=== PATIENT | male | born 1935 | race Caucasian/White ===

== ENCOUNTER 2017-04-16 18:12 | Emergency (ER) | payer MEDICARE ==
[2017-04-16 18:55] LABS: Bilirubin Negative (Negative); Blood, Urine Negative (Negative); Glucose, Urine (Dipstick) Negative (Negative); Ketone, Urine Negative (Negative); Nitrite Negative (Negative); Protein, Urine (Dipstick) Negative (Neg-Trace)
[2017-04-16 19:48] LABS: #Eosinphils 0.3 thou/uL (0.0-0.7); #Lymphocytes 1.6 thou/uL (1.20-3.40); #Monocytes 0.5 thou/uL (0.11-0.59); #Neutrophils 4.6 thou/uL (1.40-6.50); %Basophils 0.7 % (0.0-1.0); %Eosinophils 4.3 % (0.0-10.0); %Lymphocytes 22.3 % (21.0-51.0); %Monocytes 7.2 % (0.0-10.0); Hematocrit 43.9 % (42.0-52.0); Mean Platelet Volume 9.3 fL (7.4-10.4); Red Blood Cell (RBC) Count 4.29 mill/uL (4.70-6.10)
--- NOTE | 2017-04-16 20:01 | RAD ---
PA AND LATERAL OF THE CHEST 04/16/17 INDICATION: Cough and weakness. COMPARISON: None. FINDINGS: The lungs are clear. The cardiomediastinal silhouette is normal. No acute osseous abnormality is adalberto dent. IMPRESSION: No acute cardiopulmonary abnormality. POS: [facility]
[2017-04-16 20:11] LABS: ALT (SGPT) 38 U/L (8-55); AST (SGOT) 35 U/L (5-34); Alkaline Phosphatase 68 U/L (40-150); Anion Gap 11 mmol/L (10-20); BUN (Urea Nitrogen) 19 mg/dL (8.4-25.7); Bilirubin, Total 0.8 mg/dL (0.2-1.2); CK (CPK) 65 U/L (30-200); Calc. Creatinine Clearance 0 mL/min (70-130); Calcium 10.1 mg/dL (7.8-10.44); Carbon Dioxide 28 mmol/L (23-31); Chloride 101 mmol/L (98-107); Estimated GFR-MDRD 70; Globulin 3.4 g/dL (2.4-3.5); Protein, Total 7.1 g/dL (5.8-8.1)
[2017-04-16 20:14] LABS: Troponin I Less than 0.010 ng/mL (< 0.028)
[2017-04-16 21:46] LABS: PTT 29.5 SEC (22.9-36.1)
[2017-04-16] MEDS ORDERED: hydrOXYzine 25 MG TAB ONE (22:13)
== END 2017-04-16 22:16 | disposition home or self-care (01) ==
LOC: ERS 18:12
DX: J06.9 Acute upper respiratory infection, unspecified (principal); I25.89 Other forms of chronic ischemic heart disease; I10 Essential (primary) hypertension; E78.5 Hyperlipidemia, unspecified; Z79.899 Other long term (current) drug therapy
CPT/HCPCS: 36415; 71020; 80053; 81003; 82553; 84484; 85025; 85610; 85730; 93005

== ENCOUNTER 2017-08-05 12:40 | Observation (INO) | payer MEDICARE ==
[2017-08-05 13:51] LABS: #Eosinphils 0.1 thou/uL (0.0-0.7); #Lymphocytes 1.5 thou/uL (1.20-3.40); #Monocytes 0.4 thou/uL (0.11-0.59); #Neutrophils 4.2 thou/uL (1.40-6.50); %Basophils 0.1 % (0.0-1.0); %Eosinophils 1.1 % (0.0-10.0); %Lymphocytes 23.8 % (21.0-51.0); %Monocytes 7.1 % (0.0-10.0); Hemoglobin 15.3 g/dL (14.0-18.0); Mean Corpuscular HGB CONC 33.3 g/dL (32.0-36.0); Mean Platelet Volume 9.3 fL (7.4-10.4); Platelet Count 108 thou/uL (130-400); RBC Distribution Width 12.2 % (11.5-14.5); Red Blood Cell (RBC) Count 4.51 mill/uL (4.70-6.10); White Blood Cell (WBC) Count 6.2 thou/uL (4.8-10.8)
[2017-08-05 14:16] LABS: ALT (SGPT) 31 U/L (8-55); AST (SGOT) 31 U/L (5-34); Alkaline Phosphatase 80 U/L (40-150); Anion Gap 12 mmol/L (10-20); BUN (Urea Nitrogen) 38 mg/dL (8.4-25.7); Bilirubin, Total 1.1 mg/dL (0.2-1.2); Calc. Creatinine Clearance 0 mL/min (70-130); Calcium 9.8 mg/dL (7.8-10.44); Carbon Dioxide 26 mmol/L (23-31); Chloride 100 mmol/L (98-107); Estimated GFR-MDRD 60; Globulin 3.6 g/dL (2.4-3.5); Glucose 90 mg/dL (83-110); Potassium 4.3 mmol/L (3.5-5.1); Protein, Total 7.6 g/dL (5.8-8.1); Sodium 134 mmol/L (136-145)
[2017-08-05 14:21] LABS: CKMB 4.5 ng/mL (0-6.6); Troponin I Less than 0.010 ng/mL (< 0.028)
--- NOTE | 2017-08-05 14:26 | RAD ---
PORTABLE CHEST 1 VIEW: DATE: 08/05/17. TIME: 1:52 p.m. HISTORY: Bradycardia 2nd degree heart block. FINDINGS: The heart size is borderline. The lungs are expanded without focal areas of consolidation, pneumotho rax, rodrigue pulmonary edema, or pleural effusions. IMPRESSION: No radiographic evidence of acute cardiopulmonary process. POS: [facility]
[2017-08-05] MEDS ORDERED: Acetaminophen 325 MG TAB PO PRN (16:29)
[2017-08-05] MEDS ORDERED: Enoxaparin Sodium 40 MG/0.4 ML SYRINGE SC SCH (16:30)
[2017-08-05 17:40] VITALS: BMI 35.6
[2017-08-05] MEDS: Lisinopril 20 MG TAB PO SCH (19:48)
--- NOTE | 2017-08-05 20:02 | HP ---
PRIMARY CARE PHYSICIAN: Adrien Valdivia M.D. CHIEF COMPLAINT: Fatigue. HISTORY OF PRESENT ILLNESS: The patient is a very pleasant 81-year-old male who was transferred from [facility] due to possible second-degree type 1 block. The patient went for a regular evaluation since he was not feeling well, was nauseated and felt a little dizzy; upon that, the patie nt was found to be bradycardic and was asked to come here for further evaluation. The patient report s of being feeling tired; however, denies any chest pain or chest pressure. The patient states that he did see Dr. Astorga about a few months ago and had a stress test done and was told that he had a smal l blockage for which he was put on a low dose of metoprolol at night. It was in distress that it was most likely a cardiac catheterization because he did not have any stents placed and was put on medic al management. Patient states that he followed up with Dr. Valdivia and was found to have a low pu lse of 60, so his PCP recommended for the patient to take half of the metoprolol at night. The patie nt has been doing so. The patient now comes in with complaints of fatigue, not feeling well and naus ea and was found to have bradycardia and the heart rates in the low 30s to 50s. PAST MEDICAL HISTORY: The patient has history of hypertension, hyperlipidemia. PAST SURGICAL HISTORY: Bilateral knee surgery. SOCIAL HISTORY: The patient denies any smoking. Drinks about 3-4 beers a day. Denies any other rec reational drug use. REVIEW OF SYSTEMS: The following complete review of systems was negative, unless otherwise mentioned in the HPI or below: Constitutional: Weight loss or gain, ability to conduct usual activities. Sk in: Rash, itching. Eyes: Double vision, pain. ENT/Mouth: Nose bleeding, neck stiffness, pain, te nderness. Cardiovascular: Palpitations, dyspnea on exertion, orthopnea. Respiratory: Shortness of breath, wheezing, cough, hemoptysis, fever or night sweats. Gastrointestinal: Poor appetite, abdom inal pain, heartburn, nausea, vomiting, constipation, or diarrhea. Genitourinary: Urgency, frequenc y, dysuria, nocturia. Musculoskeletal: Pain, swelling. Neurologic/Psychiatric: Anxiety, depressio n. Allergy/Immunologic: Skin rash, bleeding tendency. MEDICATIONS: As the following, the patient takes atorvastatin 20 mg at bedtime, hydrochlorothiazide 50 mg daily, Norvasc 5 mg daily, lisinopril 20 mg b.i.d. and metoprolol 12.5 mg daily. LABORATORY AND X-RAY FINDINGS: EKG interpretation, it looks like patient has possibly a type 2 Mobit z II block. LABORATORY RESULTS: As the following: White count of 6.2, hemoglobin of 15.3, hematocrit 46.0, plat elets of 108. Chemistry: Sodium of 134, potassium of 4.3, BUN of 38, creatinine 1.1. Troponin init ial set is negative. PHYSICAL EXAMINATION: VITAL SIGNS: Temperature of 98.4, heart rate of 50s, respiration rate 16, blood pressure 156/63, 99% on room air. GENERAL: The patient is awake, alert, oriented x3, does not appear in any distress. HEENT: Normocephalic, atraumatic. NECK: No lymphadenopathy noted. LUNGS: Clear to auscultation. No rhonchi, wheezes noted. CARDIOVASCULAR: Regular rate, however, bradycardic. No murmurs, rubs or gallops noted. ABDOMEN: Mildly obese. Bowel sounds are present x2. No pain upon palpation around the abdomen. EXTREMITIES: No pitting edema to lower extremities. ASSESSMENT AND PLAN: The patient is a very pleasant 81-year-old male who presented to the hospital f or fatigue. 1. Generalized weakness and fatigue, most likely secondary to bradycardia, unclear if this is second robert to the beta tesfaye. I did speak with Cardiology, recommended to hold off the beta tesfaye for n ow and observe patient overnight. If his heart rate improves, the patient may not require any interv ention and will be discharged home; however, if patient's heart rate does not improve, patient will r equire a pacemaker. 2. Hypertension. We will continue patient's Norvasc, lisinopril and hydrochlorothiazide. 3. Hyperlipidemia. We will continue patient's atorvastatin. 4. Deep venous thrombosis prophylaxis. We will put patient on Lovenox 40 mg daily.
[2017-08-05 20:07] LABS: Troponin I Less than 0.010 ng/mL (< 0.028)
[2017-08-05] MEDS ORDERED: Atorvastatin Calcium 20 MG TAB PO SCH (21:00)
--- NOTE | 2017-08-05 21:29 | CON ---
DATE OF CONSULTATION: 08/05/2017 INDICATION FOR CONSULTATION: An 81-year-old patient with a second-degree heart block type 1 [facility] with heart rates in the 30s and 40s. HISTORY OF PRESENT ILLNESS: This is a very unfortunate 81-year-old gentleman who has been complainin g of some mild nausea and dizziness for the last couple of days. He checked his heart rate this morn ing. When he checked his blood pressure, it was found to be in the 30s. He got up and walked around a little bit and picked up, but then when he sat back down, the heart rate became bradycardic again. He was seen in the Emergency Room and was transferred to our facility. His heart rate still remain s anywhere between the 40s and 50s and appears to be a sinus rhythm and then alternating with a first degree AV heart block and second degree heart block type 1. He does have a history of coronary moiz ry disease. He had a cardiac catheterization in 02/2017, but was noted to have 2-vessel coronary art edie disease with 50%-75% stenosis in the distal left anterior descending artery, 50% stenosis of the left anterior descending artery at the apex and also had posterolateral stenosis of about 75% and had SAHIL grade II flow and the flow was quite good SAHIL grade III flow and no intervention was performed . He also has a history of hypertension as well as hypercholesterolemia. At this time, he is stable and continues to have some bradycardia, but it is not obviously emergency. He had been placed on be ta-blockers in the past. We had decreased these couple of months ago, originally he thought he was n ot taking the beta tesfaye, but according to the pharmacy and his records, he is still taking 25 mg o f metoprolol every evening. We will hold this medication at this time. PAST MEDICAL HISTORY: Significant for coronary artery disease, hypertension, and dyslipidemia. 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 He has had some problems with. He has had left knee surgery x2. He has had a total right knee replacement. ALLERGIES: None. FAMILY HISTORY: Noncontributory. SOCIAL HISTORY: Has no alcohol or tobacco abuse. He is . He remains relatively active despi te his age. REVIEW OF SYSTEMS: Twelve point review of system is unremarkable except what was noted in the histor y of present illness. He recently was seen in the office, last when he was seen was 03/2017. He had no new complaints except for fatigue. He denied any chest pain or shortness of breath. PHYSICAL EXAMINATION: GENERAL: Reveals an elderly gentleman. VITAL SIGNS: Blood pressure is 127/65, heart rate 53, he is afebrile, respiratory rate is 20. HEENT: Shows head to be normocephalic, atraumatic. Carotid pulses are present. I did not hear any significant bruits. CHEST: Clear to auscultation. There are no rales, rhonchi or wheezing noted. CARDIOVASCULAR: Exam reveals a bradycardia, it is regular rhythm; however, there were no significant murmurs, heaves, thrills, bruits or rubs noted. ABDOMEN: Shows obesity with positive bowel sounds. No organomegaly or masses are noted. Femoral pu lses are present. Pedal pulses are also present. He has good femoral pulses. EXTREMITIES: No edema. Mild discoloration of the lower extremities. NEUROLOGIC: Neurologically, the patient appears to be intact and did not appear to be any gross foca l motor deficits. SKIN: Warm and dry. IMAGING DATA: EKG shows a second degree AV heart block type 1 with [place] with slow heart rates in the 40s by EKG today and earlier EKG from [place] showed heart rate in the 30s, I believe it was 3 8 beats per minute. LABORATORY DATA: Pending. IMPRESSION AND PLAN: 1. Bradycardia due to second degree heart block type 1 which was symptomatic. We will hold his meto prolol at this time and see whether or not his heart rate has increased. If he does not have signifi cant improvement in the heart rate, he will still need to undergo pacemaker insertion. He has actual ly been on very low dose of beta blockers. As far as his other medicines are concerned, he takes hyd rochlorothiazide 50 mg a day, Norvasc 5 mg a day, Lipitor 20 mg a day, lisinopril 20 mg b.i.d. and he was supposed to be taken also baby aspirin daily. 2. Hypertension. This is under good control at this time. 3. Hypercholesterolemia. We will continue his present medications with Lipitor. We will continue t o follow this gentleman very carefully. I believe he may not be taking aspirin and he may need to ma ke that correction. I think he has had some bleeding issues from GI in the past. We will be more th an happy to continue to follow the patient with you. I will make further decisions about whether or not he needs to undergo pacemaker insertion based on whether or not his heart rate improves off the b eta blockers. Please note since he denies any significant recent bleeding problems and I believe he is taking a baby aspirin once a day.
[2017-08-06 04:46] LABS: ALT (SGPT) 31 U/L (8-55); AST (SGOT) 27 U/L (5-34); Albumin 3.8 g/dL (3.4-4.8); Alkaline Phosphatase 72 U/L (40-150); Anion Gap 12 mmol/L (10-20); BUN (Urea Nitrogen) 30 mg/dL (8.4-25.7); Bilirubin, Total 1.2 mg/dL (0.2-1.2); Calc. Creatinine Clearance 105 mL/min (70-130); Calcium 9.7 mg/dL (7.8-10.44); Carbon Dioxide 27 mmol/L (23-31); Chloride 102 mmol/L (98-107); Estimated GFR-MDRD 76; Globulin 3.2 g/dL (2.4-3.5); Glucose 97 mg/dL (83-110); Potassium 4.1 mmol/L (3.5-5.1); Sodium 137 mmol/L (136-145)
[2017-08-06 05:52] LABS: Band 2 % (5-11); Eosinophils 1 % (0-10); Hemoglobin 15.2 g/dL (14.0-18.0); Lymphocytes 24 % (21-51); MDiff Complete? YES; Macrocytosis SLIGHT = 6-15 cells (100X) (0-5/hpf); Mean Corpuscular HGB CONC 33.5 g/dL (32.0-36.0); Mean Corpuscular Hemoglobin 34.2 pg (27.0-31.0); Mean Platelet Volume 9.5 fL (7.4-10.4); Monocytes 3 % (0-10); Neutrophil 70 % (42-75); PLT Morphology Comment Appears Decreased; Platelet Count 90 thou/uL (130-400); RBC Distribution Width 12.2 % (11.5-14.5); Red Blood Cell (RBC) Count 4.46 mill/uL (4.70-6.10); White Blood Cell (WBC) Count 4.7 thou/uL (4.8-10.8)
--- NOTE | 2017-08-06 07:36 | PDOC.PN ---
- Subjective Encounter Start Date: 08/06/17 Encounter Start Time: 07:34 Subjective: no dizzziness - Objective Resuscitation Status: Resuscitation Status FULL:Full Resuscitation MAR Reviewed: Yes Vital Signs & Weight: Vital Signs (12 hours) Temp Pulse Resp BP BP Pulse Ox 08/06/17 06:16 45 L 08/06/17 04:14 97.7 F 50 L 16 144/64 H 96 08/06/17 01:16 50 L 08/05/17 23:03 50 L 16 138/63 97 08/05/17 20:00 97.7 F 54 L 16 Weight Weight 269 lb I&O: 08/05/17 08/06/17 08/07/17 06:59 06:59 06:59 Intake Total 330 Balance 330 Result Diagrams: 08/06/17 04:07 08/06/17 04:07 Phys Exam - Physical Examination Constitutional: NAD Neck: no JVD Respiratory: clear to auscultation bilateral Cardiovascular: RRR, no significant murmur Gastrointestinal: soft, positive bowel sounds Musculoskeletal: edema present Dx/Plan (1) Second degree heart block Code(s): I44.1 - ATRIOVENTRICULAR BLOCK, SECOND DEGREE Status: Acute (2) HTN (hypertension) Code(s): I10 - ESSENTIAL (PRIMARY) HYPERTENSION Status: Acute (3) Dyslipidemia Code(s): E78.5 - HYPERLIPIDEMIA, UNSPECIFIED Status: Acute - Plan cont off b-tesfaye, discuss with cardiology * .
[2017-08-06 08:07] VITALS: TEMP 98.2
[2017-08-06] MEDS ORDERED: Amlodipine 5 MG TAB PO SCH (09:00)
[2017-08-06] MEDS ORDERED: Hydrochlorothiazide 25 MG TAB PO SCH (09:00)
[2017-08-06] MEDS: Lisinopril 20 MG TAB PO SCH (09:08)
[2017-08-06 09:09] VITALS: BP 144/64
--- NOTE | 2017-08-06 11:06 | DIS ---
DATE OF ADMISSION: 08/05/2017 DATE OF DISCHARGE: 08/06/2017 PRIMARY CARE PROVIDER: Dr. Valdivia. FINAL DIAGNOSES: 1. Bradycardia secondary to beta tesfaye. 2. Second-degree heart block, Mobitz 1. 3. Hypertension. 4. Dyslipidemia. DISCHARGE MEDICATIONS: His beta tesfaye was held. He is being discharged on hydrochlorothiazide 50 mg a day, lisinopril 20 mg twice a day, Lipitor 20 mg a day and amlodipine 5 mg a day. ALLERGIES: No known drug allergies. CODE STATUS: Full. PENDING AT THE TIME OF DISCHARGE: Nothing. DIET: Heart healthy. HOSPITAL COURSE: The patient admitted through [facility] to the [facility] with fatigue. He was seen at [facility] and found to have profound bradycard ia, was a little dizzy. He was transferred here. Electrocardiogram shows Mobitz 1 second-degree blo ck with bradycardia. This resolved off of the beta tesfaye. He currently has a pulse of 71. Pertin ent admitting lab. CBC normal except for mild microcytosis. Comp metabolic profile was normal excep t for a BUN of 38. Thyroid function test 2.9. Cardiac enzymes normal. The patient seen in consulta tion by Dr. Fernando Astorga. The patient is being discharged. He will have an event monitor. Dr. Astorga wi ll follow up in 2 weeks with the patient. The patient has been advised to see Dr. Valdivia in foll ow up.
== END 2017-08-06 11:48 | disposition home or self-care (01) ==
LOC: ERS 12:40 → 2SW 15:10
PROVIDERS: ADMIT Internal Medicine; ATTEND Internal Medicine
DX: I44.1 Atrioventricular block, second degree (principal); I10 Essential (primary) hypertension; E78.5 Hyperlipidemia, unspecified
CPT/HCPCS: 71045; 80053 ×2; 82553; 84443; 84484 ×2; 85007; 85025; 85027; 93005; 99285; G0378; 36415

== ENCOUNTER 2018-04-12 11:23 | Inpatient (IN) | payer MEDICARE ==
[2018-04-12 11:54] LABS: Bilirubin Negative (Negative); Blood, Urine Negative (Negative); Clarity CLEAR (Clear); Glucose, Urine (Dipstick) Negative (Negative); Leukocyte Negative (Negative); Nitrite Negative (Negative); Protein, Urine (Dipstick) Negative (Neg-Trace); Specific Gravity, Urine 1.006 (1.002-1.036); Urobilinogen 0.2 mg/dL (0.2-1.0)
--- NOTE | 2018-04-12 12:07 | RAD ---
SINGLE VIEW OF THE CHEST: Comparison: 04-16-17 History: Dizziness, dyspnea. FINDINGS: Single view of the chest shows a normal sized cardiomediastinal silhouette. There is no evidence of c onsolidation, mass, or pleural effusion. The bones are unremarkable. IMPRESSION: No evidence of acute cardiopulmonary disease. POS: [facility]
[2018-04-12 12:32] LABS: #Eosinphils 0.2 thou/uL (0.0-0.7); #Lymphocytes 1.2 thou/uL (1.20-3.40); #Monocytes 0.3 thou/uL (0.11-0.59); #Neutrophils 2.9 thou/uL (1.40-6.50); %Basophils 0.3 % (0.0-1.0); %Eosinophils 4.2 % (0.0-10.0); %Lymphocytes 26.2 % (21.0-51.0); %Monocytes 6.5 % (0.0-10.0); %Neutrophils 62.9 % (42.0-75.0); Hemoglobin 14.5 g/dL (14.0-18.0); Mean Corpuscular HGB CONC 32.3 g/dL (32.0-36.0); Mean Corpuscular Hemoglobin 32.3 pg (27.0-31.0); Mean Corpuscular Volume 99.9 fL (78.0-98.0); Mean Platelet Volume 9.3 fL (7.4-10.4); Platelet Count 99 thou/uL (130-400); RBC Distribution Width 11.9 % (11.5-14.5); White Blood Cell (WBC) Count 4.6 thou/uL (4.8-10.8)
[2018-04-12 12:40] LABS: INR-International Normal Ratio 1.1
[2018-04-12 12:41] LABS: D-Dimer Test 0.41 *mcg/mL (0.27-0.43)
[2018-04-12 12:51] LABS: ALT (SGPT) 28 U/L (8-55); AST (SGOT) 27 U/L (5-34); Alkaline Phosphatase 71 U/L (40-150); Anion Gap 12 mmol/L (10-20); BUN (Urea Nitrogen) 27 mg/dL (8.4-25.7); Bilirubin, Total 0.7 mg/dL (0.2-1.2); CK (CPK) 73 U/L (30-200); Calc. Creatinine Clearance 0 mL/min (70-130); Calcium 9.8 mg/dL (7.8-10.44); Carbon Dioxide 24 mmol/L (23-31); Chloride 102 mmol/L (98-107); Estimated GFR-MDRD 59; Globulin 3.5 g/dL (2.4-3.5); Glucose 106 mg/dL (83-110); Lipase 46 U/L (8-78); Protein, Total 7.5 g/dL (5.8-8.1); Sodium 134 mmol/L (136-145)
[2018-04-12 12:55] LABS: CKMB 2.1 ng/mL (0-6.6); Troponin I Less than 0.010 ng/mL (< 0.028)
--- NOTE | 2018-04-12 15:00 | HP ---
PRIMARY CARE PHYSICIAN: Adrien Valdivia M.D. REASON FOR ADMISSION: Dizziness. HISTORY OF PRESENT ILLNESS: An 82-year-old male with a history of hypertension and dyslipidemia who initially went to [facility] Emergency Room with complaint of dizziness. The patient reports that last night, his blood pressure was variable. He had high blood pressure and that is why he took a couple of times clonidine. Subsequently, his blood pressure was running low and his pulse was variable from 50-60. His blood pressure was also variable at home and he was feeling dizzy, lightheadedness, and that is why he decided to go to emergency room today. He drove by himself to the ER. In the emergency room at [place], EKG showed prolonged CO interval and consistent with first degree AV block and short tele monitor over there showed Mobitz type 1 AV block. The patient was transferred to our emergency room for evaluation. During entire period, he did not have any chest pain, syncopal episode, nausea, vomiting, diaphoresis. Sometimes he feels fatigued and this type of symptoms he feels intermittently at home as well. Patient reports that he had cardiac catheterization done several years ago by Dr. Astorga. At that time, patient was kept on medical therapy that dropped his pulse rate and that is why medication was discontinued. At one point, Dr. Astorga also told him to get pacemaker because of his low pulse rate. He denies any orthopnea, PND, leg swelling. He denies any fever or chills. He denies taking any other medication including beta tesfaye and calcium channel tesfaye except amlodipine. REVIEW OF SYSTEMS: The following complete review of systems was negative, unless otherwise mentioned in the HPI or below: Constitutional: Weight loss or gain, ability to conduct usual activities. Skin: Rash, itching. Eyes: Double vision, pain. ENT/Mouth: Nose bleeding, neck stiffness, pain, tenderness. Cardiovascular: Palpitations, dyspnea on exertion, orthopnea. Respiratory: Shortness of breath, wheezing, cough, hemoptysis, fever or night sweats. Gastrointestinal: Poor appetite, abdominal pain, heartburn, nausea, vomiting, constipation, or diarrhea. Genitourinary: Urgency, frequency, dysuria, nocturia. Musculoskeletal: Pain, swelling. Neurologic/Psychiatric: Anxiety, depression. Allergy/Immunologic: Skin rash, bleeding tendency. Please see my HPI for pertinent positive and negative. All other review of system reviewed and negative except as mentioned in the HPI. PAST MEDICAL HISTORY: Hypertension, dyslipidemia, morbid obesity, nonobstructive coronary artery disease. PAST SURGICAL HISTORY: Bilateral knee surgery, cardiac catheterization. PAST PSYCHIATRIC HISTORY: Reviewed and negative. SOCIAL HISTORY: Patient is , lives by himself at home. He denies any smoking. He drinks alcohol socially and occasionally. He denies any other illicit drug abuse. FAMILY HISTORY: No strong family history of premature coronary artery disease, stroke or cancer. No family history of pacemaker, heart failure. EMERGENCY ROOM COURSE: Patient is given aspirin 324 mg. ALLERGIES: No known drug allergy. CURRENT HOME MEDICATIONS: Hydrochlorothiazide 50 mg daily, amlodipine 5 mg daily, lisinopril 20 mg twice daily, Lipitor 20 mg p.o. daily, clonidine p.r.n. basis. PHYSICAL EXAMINATION: VITAL SIGNS: On arrival, blood pressure 135/66, pulse 58, respiratory rate 16, temperature 97.7, saturation 96% on room air, weight 130 kilograms. GENERAL: The patient is currently alert, awake, in no obvious acute distress. HEAD: Normocephalic, atraumatic. EYES: Pupils round, reactive to light. Extraocular muscle intact. ENT: Oropharynx within normal limits. Moist mucous membranes. No oral lesion , no pharyngeal erythema, no exudate. NECK: Supple, no JVD, no thyromegaly, no carotid bruit. LUNGS: Clear to auscultation without any rhonchi or rales. CARDIAC: S1, S2 regular. No murmur, no gallop, no rub. ABDOMEN: Soft, bowel sounds present, nontender, nondistended. No organomegaly , no mass, no suprapubic tenderness. Obesity present. BACK: Unremarkable, no CVA tenderness. EXTREMITIES: Upper extremity: Passive movements of all joints are normal. Lower extremities: No edema. Good distal pulsation. SKIN: No skin rash. HEMATOLOGIC: No lymphadenopathy. NEUROLOGIC: Nonfocal examination. SIGNIFICANT LABORATORY DATA: 1. CBC: WBC 4.6, hemoglobin 14.5, platelet 99. INR 1.1. D-dimer 0.41. BMP: Sodium 134, potassium 4.0, chloride 102, carbon dioxide 24, anion gap 12, BUN 27, creatinine 1.19, glucose 106, calcium 9.8. 2. LFT: AST 27, ALT 28, alkaline phosphatase 71, albumin 4.0. CK 73, CK-MB 2.1, troponin I less than 0.010. Lipase 46. TSH 3.27. Urinalysis normal. EKG and nuclear operations specialist showed prolonged CO interval consistent with first degree AV block and nuclear operations specialist also consistent with Mobitz type 1 AV block. Chest x-ray based on my review, no acute cardiopulmonary process. ASSESSMENT AND PLAN/IMPRESSION: 1. Dizziness, lightheadedness, near syncope, likely due to bradyarrhythmia. Patient has first degree AV block and Mobitz type 1 AV block. We will consult Cardiology. We will monitor on telemetry floor. This patient may need a pacemaker placement. We will obtain echocardiography to assess ejection fraction and other structural abnormality and will rule out acute coronary syndrome with serial cardiac enzymes. This patient does not have any chest pain , so ischemia less likely suspecting a degenerative conduction system contributing to his bradyarrhythmia. At this point, we are not able to find any medication which he takes that can cause heart block. The patient took a couple of extra pills of clonidine for his high blood pressure. Unsure that medication can drop pulse rate. We will defer further decision to Cardiology. 3. Hypertension. We will continue amlodipine of 5 mg p.o. daily, lisinopril 20 mg p.o. b.i.d., hydrochlorothiazide 25 mg p.o. daily. 4. Dyslipidemia. Continue Lipitor 20 mg p.o. at bedtime. 5. Morbid obesity. Dietary education given, weight loss education given. Healthy lifestyle measures discussed with the patient. 6. Deep venous thrombosis prophylaxis. Lovenox 40 mg subcu daily. 7. Gastrointestinal prophylaxis, Pepcid 20 mg p.o. b.i.d. 8. Code status: The patient is FULL CODE. Patient's daughter is surrogate decision maker. Disposition plan based on clinical course. We are expecting patient's stay in hospital more than 2 midnights. Plan of care discussed with the patient and family member at bedside in the emergency room. [place]
[2018-04-12 15:07] LABS: Troponin I Less than 0.010 ng/mL (< 0.028)
[2018-04-12] MEDS ORDERED: Cepastat Lozenges 1 LOZ PO PRN (16:12)
[2018-04-12] MEDS ORDERED: Calcium Carbonate 500 MG ChewTAB PO PRN (16:12)
[2018-04-12] MEDS ORDERED: Artificial Tear Sol 15 ML BOT EA EYE PRN (16:12)
[2018-04-12] MEDS ORDERED: Eucerin (Mineral Oil/Petrolatum,White) 30 gm Jar TOP PRN (16:12)
[2018-04-12] MEDS ORDERED: Senokot S 8.6-50 MG TAB PO PRN (16:12)
[2018-04-12] MEDS ORDERED: Loperamide HCl 2 MG CAP PO PRN (16:12)
[2018-04-12] MEDS ORDERED: HYDROcodone/Acetaminophen 5/325 mg Tablet PO PRN (16:12)
[2018-04-12] MEDS ORDERED: Bisacodyl 5 MG TAB PO PRN (16:12)
[2018-04-12] MEDS ORDERED: Ondansetron PF 4 MG/2 ML Vial IVP PRN (16:12)
[2018-04-12] MEDS ORDERED: Sodium Chloride 0.65% Nasal 44 ML BOT EA NARE PRN (16:12)
[2018-04-12] MEDS ORDERED: Bisacodyl 10 MG SUPP PR PRN (16:12)
[2018-04-12] MEDS ORDERED: Acetaminophen 325 MG TAB PO PRN (16:12)
[2018-04-12] MEDS ORDERED: hydrALAZINE 20 MG/ML VIAL SLOW IVP PRN (16:12)
[2018-04-12] MEDS ORDERED: Ondansetron ODT 4 MG TAB PO PRN (16:12)
[2018-04-12] MEDS ORDERED: Zolpidem Tartrate 5 MG TAB PO PRN (16:12)
[2018-04-12] MEDS ORDERED: Diabetic Tussin 200 MG/10 ML UDCUP PO PRN (16:12)
[2018-04-12 16:15] VITALS: BMI 36.4
[2018-04-12 17:53] LABS: Troponin I Less than 0.010 ng/mL (< 0.028)
[2018-04-12] MEDS: Amlodipine 5 MG TAB PO SCH (20:47)
[2018-04-12] MEDS: Atorvastatin Calcium 20 MG TAB PO SCH (20:47)
[2018-04-12] MEDS: Lisinopril 20 MG TAB PO SCH (20:47)
[2018-04-12] MEDS: Famotidine 20 MG TAB PO SCH (20:58)
--- NOTE | 2018-04-13 08:03 | PDOC.PN ---
- Subjective Encounter Start Date: 04/13/18 Encounter Start Time: 07:10 -: old records requested/rev Patient seen and examined. No new complaints. last night pt has severe bradycardia - Objective Resuscitation Status: Resuscitation Status FULL:Full Resuscitation MAR Reviewed: Yes Vital Signs & Weight: Vital Signs (12 hours) Temp Pulse Resp BP BP Pulse Ox 04/13/18 04:00 97.7 F 51 L 16 133/62 96 04/12/18 23:44 98.2 F 56 L 18 101/52 L 95 04/12/18 20:47 67 145/66 H 04/12/18 20:12 98.7 F 67 16 145/68 H 98 Weight Weight 223 lb I&O: 04/12/18 04/13/18 04/14/18 06:59 06:59 06:59 Intake Total 600 Output Total 400 Balance 200 Result Diagrams: 04/12/18 12:11 04/12/18 12:11 EKG Reviewed by me: Yes (type 2 av block noted , sara episode noted) Phys Exam - Physical Examination Constitutional: NAD HEENT: PERRLA, moist MMs, sclera anicteric Neck: no JVD, supple Respiratory: no wheezing, no rales, no rhonchi Cardiovascular: RRR, no significant murmur, no rub Gastrointestinal: soft, non-tender, no distention, positive bowel sounds Musculoskeletal: no edema, pulses present Neurological: non-focal, normal sensation, moves all 4 limbs Lymphatic: no nodes Psychiatric: normal affect, A&O x 3 Skin: no rash, normal turgor Dx/Plan (1) Dizziness Code(s): R42 - DIZZINESS AND GIDDINESS Status: Acute (2) Bradycardia Code(s): R00.1 - BRADYCARDIA, UNSPECIFIED Status: Acute (3) Second degree heart block Code(s): I44.1 - ATRIOVENTRICULAR BLOCK, SECOND DEGREE Status: Acute Comment : as well as first degree AV block (4) Dyslipidemia Code(s): E78.5 - HYPERLIPIDEMIA, UNSPECIFIED Status: Chronic (5) HTN (hypertension) Code(s): I10 - ESSENTIAL (PRIMARY) HYPERTENSION Status: Chronic - Plan cont current plan of care * today echo * cardiology on case * pt may need pacemaker * medication reviewed as below * symptomatic treatment. Review of Systems - Review of Systems Constitutional: negative: fever, chills, sweats, weakness, malaise, other ENT: negative: Ear Pain, Ear Discharge, Nose Pain, Nose Discharge, Nose Congestion, Mouth Pain, Mouth Swelling, Throat Pain, Throat Swelling, Other Respiratory: negative: Cough, Dry, Shortness of Breath, Hemoptysis, SOB with Excertion, Pleuritic Pain, Sputum, Wheezing Cardiovascular: negative: chest pain, palpitations, orthopnea, paroxysmal nocturnal dyspnea, edema, light headedness, other Gastrointestinal: negative: Nausea, Vomiting, Abdominal Pain, Diarrhea, Constipation, Melena, Hematochezia, Other Genitourinary: negative: Dysuria, Frequency, Incontinence, Hematuria, Retention , Other Musculoskeletal: negative: Neck Pain, Shoulder Pain, Arm Pain, Back Pain, Hand Pain, Leg Pain, Foot Pain, Other Skin: negative: Rash, Lesions, Jaycob, Bruising, Other - Medications/Allergies Allergies/Adverse Reactions: Allergies Allergy/AdvReac Type Severity Reaction Status Date / Time No Known Allergies Allergy Unverified 08/05/17 16:52 Medications: Current Medications Acetaminophen (Tylenol) 650 mg PO Q4H PRN PRN Reason: Headache/Fever/Mild Pain (1-3) Hydrocodone Bitart/Acetaminophen ([place] 5/325) 1 tab PO Q4H PRN PRN Reason: Moderate Pain (4-6) Amlodipine Besylate (Norvasc) 5 mg PO BID [facility] Last Admin: 04/12/18 20:47 Dose: 5 mg Artificial Tears (Tears Renewed 15ml Bottle) 2 drop EA EYE PRN PRN PRN Reason: Dry Eyes Aspirin (Aspirin) 325 mg PO DAILY [facility] Atorvastatin Calcium (Lipitor) 20 mg PO HS [facility] Last Admin: 04/12/18 20:47 Dose: 20 mg Bisacodyl (Dulcolax) 10 mg PO DAILYPRN PRN PRN Reason: Constipation Bisacodyl (Dulcolax) 10 mg [place] DAILYPRN PRN PRN Reason: Constipation Calcium Carbonate (Tums) 1,000 mg PO Q4H PRN PRN Reason: Heartburn or Indigestion Enoxaparin Sodium (Lovenox) 40 mg SC 0900 [facility] Famotidine (Pepcid) 20 mg PO BID [facility] Last Admin: 04/12/18 20:58 Dose: Not Given Guaifenesin (Robitussin Sf) 200 mg PO Q4H PRN PRN Reason: Cough Hydralazine HCl (Apresoline) 10 mg SLOW IVP Q4H PRN PRN Reason: SBP > 180 and HR < 70 Hydrochlorothiazide (Hydrochlorothiazide) 25 mg PO DAILY [facility] Lisinopril (Zestril) 20 mg PO BID [facility] Last Admin: 04/12/18 20:47 Dose: 20 mg Loperamide HCl (Imodium) 2 mg PO PRN PRN PRN Reason: Diarrhea/Loose Stools Mineral Oil/White Petrolatum (Eucerin Cream) 0 gm TOP BIDPRN PRN PRN Reason: Dry Skin Ondansetron HCl (Zofran Odt) 4 mg PO Q6H PRN PRN Reason: Nausea/Vomiting Ondansetron HCl (Zofran) 4 mg IVP Q6H PRN PRN Reason: Nausea/Vomiting Senna/Docusate Sodium (Senokot S) 2 tab PO BID PRN PRN Reason: Constipation Sodium Chloride ([place] Nas[place] 0.65%) 0 ml EA NARE QIDPRN PRN PRN Reason: Nasal Congestion Throat Lozenges (Cepastat Lozenges) 1 mandi PO Q2H PRN PRN Reason: Sore Throat Zolpidem Tartrate (Ambien) 5 mg PO HSPRN PRN PRN Reason: Insomnia Last Admin: 04/12/18 20:48 Dose: 5 mg
[2018-04-13] MEDS: Hydrochlorothiazide 25 MG TAB PO SCH (09:41)
[2018-04-13] MEDS: Famotidine 20 MG TAB PO SCH ×2 (09:41→20:28)
[2018-04-13] MEDS: Lisinopril 20 MG TAB PO SCH ×2 (09:41→20:28)
[2018-04-13] MEDS: Amlodipine 5 MG TAB PO SCH ×2 (09:41→20:27)
--- NOTE | 2018-04-13 10:06 | PDOC.CTH ---
Cardiology Progress Note - Subjective Pt. seen and eval. by me. He denies complaints at this rime. This AM he had an episode of 2 AVB II. HR in the 20's. - Objective Vital Signs Temp Pulse Resp BP BP Pulse Ox 04/13/18 09:41 58 L 119/57 L 04/13/18 08:00 97.7 F 58 L 18 119/57 L 98 04/13/18 04:00 97.7 F 51 L 16 133/62 96 04/12/18 23:44 98.2 F 56 L 18 101/52 L 95 Weight 223 lb 04/12/18 04/13/18 04/14/18 06:59 06:59 06:59 Intake Total 600 Output Total 400 Balance 200 - Physical Examination General/Neuro: alert & oriented x3 Neck: carotid US brisk Lungs: CTA Heart: RRR Abdomen: NT/ND, soft - Telemetry Telemetry Rhythm: Sinus with 1 AVB, 2AVB I and 2AVB II intermittently. - Labs Result Diagrams: 04/12/18 12:11 04/12/18 12:11 Troponin/CKMB CK-MB (CK-2) 2.1 ng/mL (0-6.6) 04/12/18 12:11 Troponin I Less than 0.010 ng/mL (< 0.028) 04/12/18 17:20 - Assessment/Plan 1. 2 AVB II. Plan for pacemaker this AM. Orocedure and risks explained to the pt. to include bleedinig,pneumothorax,hemothorax, tamponade,infection. He agree to proceed. Plan for tis AM. 2. CAD. Stable. Will resume betablockers after the pacemaker is inserted. 3. HTN. Controlled at tis time. Resume betablockers after the pacemaker is inserted. 4. Dyslipidemia. Continue statins.
[2018-04-13] MEDS ORDERED: Gentamicin 80 MG/2 ML VIAL ONE (10:08)
[2018-04-13] MEDS ORDERED: CEFAZOLIN 1 GM VIAL ONE (10:08)
--- NOTE | 2018-04-13 10:57 | CON ---
DATE OF CONSULTATION: 04/12/2018 HISTORY OF PRESENT ILLNESS: The patient is an 82-year-old gentleman with a history of coronary artery disease and bradycardia, who presented with dizziness and weakness. The patient has a previous history of coronary artery disease. In 2017, he underwent cardiac catheterization. He was found to have a 50%-75% LAD lesion and 75% stenosis in the distal posterior left ventricular branch. The patient has been on medical therapy, and also has a history of bradycardia. The patient has previously worn a Holter monitor which revealed occasional bradycardia. The patient recently was found by his primary doctor to have a slow heart rate and taken off metoprolol. The patient has noticed subsequently that his blood pressure has been elevated. He felt dizzy yesterday and took two clonidine tablets. He woke up this morning and became dizzy. The patient states he felt weak. He did not lose consciousness. The patient presented to the local emergency room for further evaluation. PAST MEDICAL HISTORY: 1. Coronary artery disease. 2. Hypertension. 3. Dyslipidemia. 4. Obesity. PAST SURGICAL HISTORY: Knee surgery. ALLERGIES: No known drug allergies. MEDICATIONS ON ADMISSION: Lisinopril 20 b.i.d., HCTZ 50 daily, Lipitor 20 daily , Norvasc 5 daily. SOCIAL HISTORY: Nonsmoker. Long history of significant alcohol use. REVIEW OF SYSTEMS: Ten-point system otherwise unremarkable. No history of easy bruising or bleeding, bright red blood per rectum. PHYSICAL EXAMINATION: GENERAL: Obese gentleman, in no acute distress. VITAL SIGNS: Blood pressure 134/62. NECK: No jugular venous distention. LUNGS: Clear to auscultation. HEART: Regular rate and rhythm, normal S1, S2, no murmurs. ABDOMEN: Distended. EXTREMITIES: Showed trace edema. SKIN: Warm and dry. NEUROLOGIC: Nonfocal. VASCULAR: Radial pulses 2+. LABORATORY DATA: Sodium 134, potassium 4.0, chloride 102, bicarbonate 24, BUN 27, creatinine is 1.1, troponin less than 0.01. BNP was 114. White blood cell count 4.6, hemoglobin 14.4, hematocrit 44.9, his platelets are 99. His BNP was 114. His EKG revealed him to have normal sinus rhythm, second degree AV block, Mobitz type 1. IMPRESSION: 1. Dizziness. 2. Hypertension. 3. Second degree AV block, Mobitz type 1. 4. Coronary artery disease. 5. Dyslipidemia. 6. Obesity. PLAN: This gentleman presented with dizziness. This probably was secondary to his markedly elevated blood pressure. He subsequently took clonidine. He will be monitored on telemetry. We will increase the dose of his Norvasc to lower his blood pressure. Further recommendation will follow. Dr. Astorga will see the patient tomorrow. [place]
[2018-04-13] MEDS ORDERED: Midazolam HCl 2 mg/2 ml Vial ONE (11:13)
[2018-04-13] MEDS: Aspirin 325 MG TAB PO SCH (14:08)
[2018-04-13] MEDS: Enoxaparin Sodium 40 MG/0.4 ML SYRINGE SC SCH (14:08)
--- NOTE | 2018-04-13 14:29 | RAD ---
PORTABLE CHEST: Date: 04-13-18 Provided Clinical History: Post cardiac device placement. Comparison: 04-12-18 FINDINGS: Interval placement of a left subclavian cardiac pacing device with lead tips overlying the expected l ocations of RA and RV. No focal consolidation, pleural fluid or pneumothorax apparent. IMPRESSION: Status post cardiac device placement without evidence for complication. POS: ERINN
--- NOTE | 2018-04-13 14:58 | CCL ---
CARDIOLOGY PROCEDURE NOTE: Date: 04/13/18 PROCEDURE: Dual chamber pacemaker insertion. REASON FOR PROCEDURE: 82-year-old patient with intermittent second-degree heart block type 2 with severe bradycardia, heart rates in the 30s-50s, with dizziness, which is symptomatic bradycardia. He was advised to undergo du al chamber pacemaker insertion. PROCEDURE DETAILS: He was taken to cardiac catheterization lab, prepped and draped in sterile fashion. He underwent the procedure without difficulties or complications. He was implanted with a dual chamber pacemaker from [employer] ([place]). This is a MRI-compatible device, with two screw-in leads, one in the atrium and o ne in the ventricle. There were no complications or difficulties encountered. The patient tolerated t he procedure well. The pacemaker was set with the upper rate at 120 and the lower rate was set at 60.
[2018-04-13] MEDS: Carvedilol 3.125 MG TAB PO SCH (18:06)
[2018-04-13] MEDS: Atorvastatin Calcium 20 MG TAB PO SCH (20:28)
[2018-04-14 08:49] VITALS: TEMP 97.9
[2018-04-14] MEDS: Aspirin 325 MG TAB PO SCH (08:53)
[2018-04-14] MEDS: Carvedilol 3.125 MG TAB PO SCH (08:53)
[2018-04-14] MEDS: Hydrochlorothiazide 25 MG TAB PO SCH (08:53)
[2018-04-14] MEDS: Famotidine 20 MG TAB PO SCH (08:54)
[2018-04-14] MEDS: Amlodipine 5 MG TAB PO SCH (08:54)
[2018-04-14] MEDS: Lisinopril 20 MG TAB PO SCH (08:54)
[2018-04-14] MEDS: Enoxaparin Sodium 40 MG/0.4 ML SYRINGE SC SCH (09:09)
--- NOTE | 2018-04-14 09:22 | PDOC.PN ---
- Subjective Encounter Start Date: 04/14/18 Encounter Start Time: 06:40 -: old records requested/rev Patient seen and examined. No new complaints. No overnight events - Objective Resuscitation Status: Resuscitation Status FULL:Full Resuscitation MAR Reviewed: Yes Vital Signs & Weight: Vital Signs (12 hours) Temp Pulse Resp BP Pulse Ox 04/14/18 08:54 60 04/14/18 08:00 97.9 F 60 18 104/54 L 99 04/14/18 04:40 97.8 F 60 19 121/55 L 95 Weight Weight 286 lb 6.4 oz I&O: 04/13/18 04/14/18 04/15/18 06:59 06:59 06:59 Intake Total 600 1320 Output Total 400 450 Balance 200 870 Result Diagrams: 04/12/18 12:11 04/12/18 12:11 Radiology Reviewed by me: Yes EKG Reviewed by me: Yes Phys Exam - Physical Examination Constitutional: NAD HEENT: PERRLA, moist MMs, sclera anicteric Neck: no JVD, supple Respiratory: no wheezing, no rales, no rhonchi Cardiovascular: RRR, no significant murmur, no rub Gastrointestinal: soft, non-tender, no distention, positive bowel sounds Musculoskeletal: no edema, pulses present Neurological: non-focal, normal sensation, moves all 4 limbs Psychiatric: normal affect, A&O x 3 Skin: no rash, normal turgor Dx/Plan (1) Dizziness Code(s): R42 - DIZZINESS AND GIDDINESS Status: Acute (2) Bradycardia Code(s): R00.1 - BRADYCARDIA, UNSPECIFIED Status: Acute (3) Second degree heart block Code(s): I44.1 - ATRIOVENTRICULAR BLOCK, SECOND DEGREE Status: Acute Comment : as well as first degree AV block (4) Dyslipidemia Code(s): E78.5 - HYPERLIPIDEMIA, UNSPECIFIED Status: Chronic (5) HTN (hypertension) Code(s): I10 - ESSENTIAL (PRIMARY) HYPERTENSION Status: Chronic (6) S/P cardiac pacemaker procedure Status: Acute - Plan cont current plan of care * medication reviewed as below * symptomatic treatment * stable for discharge * see my discharge summery later * medication reconciled and prescription sent to pharmacy * will discharge if cardiology ok. Review of Systems - Review of Systems ENT: negative: Ear Pain, Ear Discharge, Nose Pain, Nose Discharge, Nose Congestion, Mouth Pain, Mouth Swelling, Throat Pain, Throat Swelling, Other Respiratory: negative: Cough, Dry, Shortness of Breath, Hemoptysis, SOB with Excertion, Pleuritic Pain, Sputum, Wheezing Cardiovascular: negative: chest pain, palpitations, orthopnea, paroxysmal nocturnal dyspnea, edema, light headedness, other Gastrointestinal: negative: Nausea, Vomiting, Abdominal Pain, Diarrhea, Constipation, Melena, Hematochezia, Other Genitourinary: negative: Dysuria, Frequency, Incontinence, Hematuria, Retention , Other Musculoskeletal: negative: Neck Pain, Shoulder Pain, Arm Pain, Back Pain, Hand Pain, Leg Pain, Foot Pain, Other Skin: negative: Rash, Lesions, Jaycob, Bruising, Other - Medications/Allergies Allergies/Adverse Reactions: Allergies Allergy/AdvReac Type Severity Reaction Status Date / Time No Known Allergies Allergy Unverified 08/05/17 16:52 Medications: Current Medications Acetaminophen (Tylenol) 650 mg PO Q4H PRN PRN Reason: Headache/Fever/Mild Pain (1-3) Hydrocodone Bitart/Acetaminophen ([place] 5/325) 1 tab PO Q4H PRN PRN Reason: Moderate Pain (4-6) Last Admin: 04/13/18 18:04 Dose: 1 tab Amlodipine Besylate (Norvasc) 5 mg PO BID [facility] Last Admin: 04/14/18 08:54 Dose: 5 mg Artificial Tears (Tears Renewed 15ml Bottle) 2 drop EA EYE PRN PRN PRN Reason: Dry Eyes Aspirin (Aspirin) 325 mg PO DAILY [facility] Last Admin: 04/14/18 08:53 Dose: 325 mg Atorvastatin Calcium (Lipitor) 20 mg PO [facility] Last Admin: 04/13/18 20:28 Dose: 20 mg Bisacodyl (Dulcolax) 10 mg PO DAILYPRN PRN PRN Reason: Constipation Last Admin: 04/13/18 18:06 Dose: 10 mg Bisacodyl (Dulcolax) 10 mg [place] DAILYPRN PRN PRN Reason: Constipation Calcium Carbonate (Tums) 1,000 mg PO Q4H PRN PRN Reason: Heartburn or Indigestion [facility] ([facility]g) [facility] Last Admin: 04/14/18 08:53 Dose: 3.125 mg Enoxaparin Sodium (Lovenox) 40 mg SC 0900 [facility] Last Admin: 04/14/18 09:09 Dose: Not Given Famotidine (Pepcid) 20 mg PO BID [facility] Last Admin: 04/14/18 08:54 Dose: 20 mg Guaifenesin (Robitussin Sf) 200 mg PO Q4H PRN PRN Reason: Cough Hydralazine HCl (Apresoline) 10 mg SLOW IVP Q4H PRN PRN Reason: SBP > 180 and HR < 70 Hydrochlorothiazide (Hydrochlorothiazide) 25 mg PO DAILY [facility] Last Admin: 04/14/18 08:53 Dose: 25 mg Lisinopril (Zestril) 20 mg PO BID [facility] Last Admin: 04/14/18 08:54 Dose: 20 mg Loperamide HCl (Imodium) 2 mg PO PRN PRN PRN Reason: Diarrhea/Loose Stools Mineral Oil/White Petrolatum (Eucerin Cream) 0 gm TOP BIDPRN PRN PRN Reason: Dry Skin Ondansetron HCl (Zofran Odt) 4 mg PO Q6H PRN PRN Reason: Nausea/Vomiting Ondansetron HCl (Zofran) 4 mg IVP Q6H PRN PRN Reason: Nausea/Vomiting Senna/Docusate Sodium (Senokot S) 2 tab PO BID PRN PRN Reason: Constipation Sodium Chloride ([place] Nasal [place] 0.65%) 0 ml EA NARE QIDPRN PRN PRN Reason: Nasal Congestion Sodium Chloride (Flush - Normal Saline) 10 ml IVF Q12HR [facility] Last Admin: 04/14/18 08:57 Dose: 10 ml Sodium Chloride (Flush - Normal Saline) 10 ml IVF PRN PRN PRN Reason: Saline Flush Throat Lozenges (Cepastat Lozenges) 1 mandi PO Q2H PRN PRN Reason: Sore Throat Zolpidem Tartrate (Ambien) 5 mg PO HSPRN PRN PRN Reason: Insomnia Last Admin: 04/12/18 20:48 Dose: 5 mg
--- NOTE | 2018-04-14 10:21 | EKG ---
Test Reason : POST PACEMAKER INSER Blood Pressure : / mmHG Vent. Rate : 060 BPM Atrial Rate : 060 BPM P-R Int : 104 ms QRS Dur : 192 ms QT Int : 500 ms P-R-T Axes : 000 -62 098 degrees QTc Int : 500 ms AV sequential or dual chamber electronic pacemaker When compared with ECG of 12-APR-2018 11:30, (Unconfirmed) Electronic ventricular pacemaker has replaced Sinus rhythm Confirmed by BABAK CHURCH ([id number]) on 04/14/2018 10:20:48 AM Referred By: ROSS Confirmed By:BABAK CHURCH
--- NOTE | 2018-04-14 10:38 | DIS ---
DATE OF ADMISSION: 04/12/2018 DATE OF DISCHARGE: 04/14/2018 PRIMARY CARE PHYSICIAN: Adrien Valdivia M.D. DISCHARGE DISPOSITION: Home. PRIMARY DISCHARGE DIAGNOSES: 1. Symptomatic high degree AV block (Wenckebach type second degree AV block as well as first degree AV block. 2. Status post cardiac pacemaker procedure. 3. Dizziness due to problem #1. SECONDARY DISCHARGE DIAGNOSES: Hypertension, dyslipidemia, obesity with body mass index 36. PRIMARY PROCEDURE/OPERATION: Pacemaker procedure done during this admission. RADIOLOGICAL INVESTIGATION: Chest x-ray before and after procedure was unremarkable. SIGNIFICANT LABORATORY DATA: WBC 4.6, hemoglobin 14.5, platelet 99. INR 1.1. D-dimer 0.41. Sodium 134, potassium 4.0, BUN 27, creatinine 1.19, glucose 106, calcium 9.8. LFT normal. Cardiac enzymes negative x3. BNP 114.3. TSH 3.27. Urinalysis normal. Blood culture negative. Echocardiography w as ordered, but result is not available at this point. DISCHARGE MEDICATIONS: Lipitor 20 mg p.o. daily, clonidine 0.1 mg p.o. daily p.r.n., lisinopril 20 m g p.o. b.i.d. and Norvasc 5 mg p.o. b.i.d., aspirin 81 mg p.o. daily, Coreg 3.125 mg p.o. b.i.d., hyd rochlorothiazide 25 mg p.o. daily. CONTRAINDICATIONS: None. CODE STATUS: FULL CODE. INPATIENT CONSULTANTS: Dr. Humberto Lentz, storyboard artist, was following while in hospital. Dr. Gauri messer id pacemaker procedure. TEST RESULTS PENDING ON DISCHARGE: None. ALLERGIES: No known drug allergy. DISCHARGE PLAN: Post hospital, the patient will follow up with Dr. Valdivia in 1 week. The patien t will follow up with Dr. Astorga as instructed in 2-3 weeks. HOSPITAL COURSE: An 82-year-old male with above-mentioned medical problem who was admitted by me on 04/12/2018. Please see my HPI for further details. Patient was admitted for dizziness. He was havi ng low pulse rate and he was having second degree type 1 as well as first degree AV block. On monito r while in hospital, he had a significantly low bradycardia with heart rate is 20-30s. He was sympto matic with that. The patient was requiring pacemaker. Pacemaker was done during this admission and after pacemaker, chest x-ray was normal. Echocardiography was obtained during this admission, but re sult is pending. Patient is completely asymptomatic at this point. His pacemaker site is clean and healthy. If Cardiology okay, then we will consider discharging him home later on today. Above-mentioned medic ation adjustment was done during this admission. The patient is seen and examined at bedside today. Please see my progress note from today for furthe r detail.
[2018-04-14 11:09] VITALS: BP 95/52
--- NOTE | 2018-04-14 13:03 | PDOC.CTH ---
Cardiology Progress Note - Subjective Pt. s/p pacemaker insertion yesterday. no events overnight. No further dizziness. - Objective Vital Signs Temp Pulse Resp BP Pulse Ox 04/14/18 11:08 97.9 F 61 18 95/52 L 99 04/14/18 08:54 60 04/14/18 08:00 97.9 F 60 18 104/54 L 99 04/14/18 04:40 97.8 F 60 19 121/55 L 95 Weight 286 lb 6.4 oz 04/13/18 04/14/18 04/15/18 06:59 06:59 06:59 Intake Total 600 1320 Output Total 400 450 Balance 200 870 - Physical Examination General/Neuro: alert & oriented x3 Neck: carotid US brisk Lungs: CTA Heart: RRR Abdomen: NT/ND - Labs Result Diagrams: 04/12/18 12:11 04/12/18 12:11 Troponin/CKMB CK-MB (CK-2) 2.1 ng/mL (0-6.6) 04/12/18 12:11 Troponin I Less than 0.010 ng/mL (< 0.028) 04/12/18 17:20 - Assessment/Plan 1. s/p pacemaker for 2nd degree AVB II. Stable. Normal function. CXR: no hemo- pneumothorax 2. HTN Stable 3. CAD- stable. OK to d/c pt. to home. F/U with me in 7-10 days for wound check.
== END 2018-04-14 14:00 | disposition home or self-care (01) | DRG 244 ==
LOC: ERS 11:23 → 2NO 16:08
PROVIDERS: ADMIT Internal Medicine; ATTEND Internal Medicine
PROC: 0JH606Z Insertion of Pacemaker, Dual Chamber into Chest Subcutaneous Tissue and Fascia, Open Approach (ICD-10-PCS; principal; 2018-04-13)
PROC: 02H63JZ Insertion of Pacemaker Lead into Right Atrium, Percutaneous Approach (ICD-10-PCS; 2018-04-13)
PROC: 02HK3JZ Insertion of Pacemaker Lead into Right Ventricle, Percutaneous Approach (ICD-10-PCS; 2018-04-13)
DX: I44.1 Atrioventricular block, second degree (principal); I49.8 Other specified cardiac arrhythmias; I10 Essential (primary) hypertension; E78.5 Hyperlipidemia, unspecified; E66.01 Morbid (severe) obesity due to excess calories; Z68.36 Body mass index [BMI] 36.0-36.9, adult; I25.10 Atherosclerotic heart disease of native coronary artery without angina pectoris
CPT/HCPCS: 33249; 36415; 71045; 80053; 81003; 82550; 82553; 83690; 83880; 84443; 84484; 85025; 85379; 85610; 85730; 87040; 93005; 93010; 93306; 93798; 99152; C1785; C1898; J0690; J1580; J1650; J2250